=== PATIENT | female | born 1935 | race African-American/Black ===

== ENCOUNTER 2017-01-29 08:52 | Inpatient (IN) | payer MEDICARE, MEDICAID ==
[~2017-01-29] VITALS: Ht 168.9 cm; Wt 58.5 kg
[2017-01-29] MEDS ORDERED: SODIUM CHLORIDE 0.9% 1,000 ML IV ONE (09:24)
[2017-01-29] MEDS ORDERED: KETOROLAC 15MG/ML VIAL IV ONE (09:30)
[2017-01-29 09:46] LABS: BASOPHILS % 0.8 % (0.0-2.0); EOSINOPHILS % 1.2 % (0.0-5.0); HEMATOCRIT. 40.1 % (36.0-48.0); HEMOGLOBIN. 13.6 g/dL (12.0-16.0); LYMPHOCYTES % 21.6 % (20.0-50.0); MEAN CORPUSCULAR HEMOGLOBIN 31.1 pg (28.0-32.0); MEAN CORPUSCULAR HGB CONC 33.9 g/dL (31.0-37.0); MEAN CORPUSCULAR VOLUME 91.7 fL (81.0-99.0); MEAN PLATELET VOLUME 9.1 fl (7.4-10.4); MONOCYTES % 10.8 % (2.0-8.0); NEUTROPHILS % 65.6 % (40.0-76.0); PLATELET 131 x1000/uL (130-400); RED BLOOD CELL COUNT 4.37 mill/uL (4.2-5.4); RED CELL DISTRIBUTION WIDTH 14.3 % (11.6-14.6); WHITE BLOOD COUNT 3.8 x1000/uL (4.5-11.0)
[2017-01-29 09:54] LABS: PROTHROMBIN TIME 10.7 sec
[2017-01-29 10:03] LABS: ALANINE AMINOTRANSFERASE 21 IU/L (13-61); ALBUMIN 3.3 g/dL (3.4-5.0); ANION GAP 11; CALCIUM 8.3 mg/dL (8.5-10.1); CARBON DIOXIDE 30 mEq/L (21-32); CHLORIDE 102 mEq/L (98-107); INDEX HEMOLYSI 1 (1-3); INDEX ICTERIC 1 (1-4); INDEX LIPEMIC 1 (1-3); NT PRO B-TYPE NATRIURETIC PEP 1798 pg/mL (5-125); TROPONIN I 0.06 ng/mL (0.00-0.04); UREA NITROGEN BLOOD 18 mg/dL (7-21); eGFR > 60 mL/min (>60)
[2017-01-29] MEDS ORDERED: POTASSIUM CHLORIDE 20MEQ TABLET SR PO ONE (10:45)
[2017-01-29 13:24] LABS: CLARITY URINE CLEAR (CLEAR); COLOR URINE YELLOW (YELLOW); GLUCOSE URINE NEGATIVE (NEGATIVE); KETONES URINE NEGATIVE (NEGATIVE); LEUKOCYTE ESTERASE URINE NEGATIVE (NEGATIVE); NITRITE URINE NEGATIVE (NEGATIVE); OCCULT BLOOD URINE NEGATIVE (NEGATIVE); PROTEIN URINE TRACE (NEGATIVE); SPECIFIC GRAVITY URINE 1.015 (1.005-1.030); UROBILINOGEN URINE 0.2 E.U./dL (0.2-1.0)
[2017-01-29 13:53] LABS: WBC URINE 0-2 /hpf (0-2)
[2017-01-29 13:54] LABS: BACTERIA URINE NONE SEEN; MUCUS URINE 1+ /lpf (< = 2+); RBC URINE NONE SEEN /hpf (0-2); SQUAMOUS EPITHELIAL CELL URINE 1+ /lpf (RARE/1+)
[2017-01-29] MEDS ORDERED: ACETAMINOPHEN 325MG TABLET PO PRN (15:00)
[2017-01-29] MEDS ORDERED: ONDANSETRON HCL 4MG/2ML VIAL IV PRN (15:00)
[2017-01-29] MEDS ORDERED: MAGNESIUM/ALUMINUM HYDROXIDE/SIMETHICONE 30ML UDC PO PRN (15:00)
[2017-01-29] MEDS ORDERED: CLONIDINE 0.1MG TABLET PO PRN (15:00)
[2017-01-29] MEDS ORDERED: ENOXAPARIN 40MG/0.4ML SYR SUBCUT SCH (15:00)
[2017-01-29] MEDS ORDERED: HYDROCODONE/ACETAMINOPHEN 5/325MG TABLET PO PRN (15:00)
[2017-01-29] MEDS ORDERED: DOCUSATE SODIUM 100MG CAPSULE PO PRN (15:00)
[2017-01-29] MEDS: GUAIFENESIN 200MG/10ML SUGAR FREE UDC PO PRN (16:14)
[2017-01-29] MEDS ORDERED: LEVOFLOXACIN 500MG PREMIX 100 ML IV NR (16:14)
[2017-01-29] MEDS: ENOXAPARIN 40MG/0.4ML SYR SUBCUT SCH (21:00)
[2017-01-29 23:23] LABS: TROPONIN I 0.04 ng/mL (0.00-0.04)
[2017-01-30] VITALS (7 sets, daily range): BP systolic 117–142; BP diastolic 79–90
[2017-01-30] MEDS: GUAIFENESIN 200MG/10ML SUGAR FREE UDC PO PRN ×3 (00:34→21:32)
[2017-01-30] MEDS: ALPRAZOLAM 0.5 MG TABLET PO PRN ×2 (01:01→23:39)
[2017-01-30 05:40] LABS: ALANINE AMINOTRANSFERASE 17 IU/L (13-61); ALBUMIN 2.4 g/dL (3.4-5.0); CALCIUM 7.7 mg/dL (8.5-10.1); CARBON DIOXIDE 29 mEq/L (21-32); CHLORIDE 105 mEq/L (98-107); CREATINE KINASE 99 IU/L (26-192); HDL CHOLESTEROL 48 mg/dL (40-59); INDEX HEMOLYSI 1 (1-3); INDEX ICTERIC 1 (1-4); INDEX LIPEMIC 1 (1-3); LDL CHOLESTEROL 73 mg/dL (5-100); TRIGLYCERIDE 67 mg/dL (0-150); TROPONIN I 0.05 ng/mL (0.00-0.04); UREA NITROGEN BLOOD 12 mg/dL (7-21); eGFR > 60 mL/min (>60)
[2017-01-30 06:40] LABS: BASOPHILS % 0.7 % (0.0-2.0); EOSINOPHILS % 1.8 % (0.0-5.0); HEMATOCRIT. 36.4 % (36.0-48.0); HEMOGLOBIN. 12.6 g/dL (12.0-16.0); LYMPHOCYTES % 37.8 % (20.0-50.0); MEAN CORPUSCULAR HGB CONC 34.5 g/dL (31.0-37.0); MEAN CORPUSCULAR VOLUME 89.6 fL (81.0-99.0); MEAN PLATELET VOLUME 9.1 fl (7.4-10.4); MONOCYTES % 12.9 % (2.0-8.0); NEUTROPHILS % 46.8 % (40.0-76.0); PLATELET 128 x1000/uL (130-400); RED BLOOD CELL COUNT 4.06 mill/uL (4.2-5.4); RED CELL DISTRIBUTION WIDTH 13.8 % (11.6-14.6); WHITE BLOOD COUNT 2.7 x1000/uL (4.5-11.0)
[2017-01-30] MEDS: ASPIRIN 81MG EC TABLET PO SCH (08:19)
[2017-01-30 10:31] LABS: ANION GAP 11
[2017-01-30] MEDS ORDERED: POTASSIUM CHLORIDE 20MEQ TABLET SR PO NR (10:45)
[2017-01-30] MEDS ORDERED: LEVOFLOXACIN 500MG PREMIX 100 ML IV SCH (16:14)
[2017-01-30] MEDS: LEVOFLOXACIN 250MG PREMIX 50 ML IV SCH (17:49)
[2017-01-30] MEDS: ENOXAPARIN 40MG/0.4ML SYR SUBCUT SCH (21:00)
[2017-01-31] VITALS: BP 144/90
[2017-01-31 04:00] VITALS: BP 133/84
[2017-01-31 06:04] LABS: ALANINE AMINOTRANSFERASE 23 IU/L (13-61); ALBUMIN 2.6 g/dL (3.4-5.0); ANION GAP 12; CALCIUM 7.8 mg/dL (8.5-10.1); CARBON DIOXIDE 29 mEq/L (21-32); CHLORIDE 105 mEq/L (98-107); INDEX HEMOLYSI 1 (1-3); INDEX ICTERIC 1 (1-4); INDEX LIPEMIC 1 (1-3); MAGNESIUM 1.8 mg/dL (1.8-2.4); UREA NITROGEN BLOOD 14 mg/dL (7-21); eGFR > 60 mL/min (>60)
[2017-01-31 06:43] LABS: BASOPHILS % 0.8 % (0.0-2.0); EOSINOPHILS % 2.9 % (0.0-5.0); HEMOGLOBIN. 12.6 g/dL (12.0-16.0); LYMPHOCYTES % 40.7 % (20.0-50.0); MEAN CORPUSCULAR HEMOGLOBIN 30.9 pg (28.0-32.0); MEAN CORPUSCULAR HGB CONC 34.2 g/dL (31.0-37.0); MEAN CORPUSCULAR VOLUME 90.4 fL (81.0-99.0); MEAN PLATELET VOLUME 9.1 fl (7.4-10.4); MONOCYTES % 10.3 % (2.0-8.0); NEUTROPHILS % 45.3 % (40.0-76.0); PLATELET 137 x1000/uL (130-400); RED BLOOD CELL COUNT 4.09 mill/uL (4.2-5.4); RED CELL DISTRIBUTION WIDTH 13.9 % (11.6-14.6); WHITE BLOOD COUNT 3.3 x1000/uL (4.5-11.0)
[2017-01-31 07:58] VITALS: BP 121/76
[2017-01-31] MEDS: ASPIRIN 81MG EC TABLET PO SCH (08:13)
[2017-01-31] MEDS ORDERED: POTA10CA42 PO (08:21)
[2017-01-31] MEDS ORDERED: ALPR0.5T96 PO (08:21)
[2017-01-31] MEDS: GUAIFENESIN 200MG/10ML SUGAR FREE UDC PO PRN (10:47)
[2017-01-31 11:58] VITALS: BP 144/93
[2017-01-31] MEDS: POTASSIUM CHLORIDE 20MEQ TABLET SR PO SCH (13:57)
[2017-01-31 16:00] VITALS: BP 134/85
[2017-01-31] MEDS: LEVOFLOXACIN 250MG PREMIX 50 ML IV SCH (18:07)
[2017-01-31 20:00] VITALS: BP 136/78
[2017-01-31] MEDS: ENOXAPARIN 40MG/0.4ML SYR SUBCUT SCH (21:00)
[2017-02-01] VITALS: BP 135/87
[2017-02-01 04:00] VITALS: BP 140/87
[2017-02-01] MEDS: GUAIFENESIN 200MG/10ML SUGAR FREE UDC PO PRN ×2 (04:31→19:07)
[2017-02-01 08:08] VITALS: BP 143/88
[2017-02-01] MEDS: ASPIRIN 81MG EC TABLET PO SCH (09:00)
[2017-02-01] MEDS: POTASSIUM CHLORIDE 20MEQ TABLET SR PO SCH (09:17)
[2017-02-01] MEDS: LEVOFLOXACIN 250MG TABLET PO SCH (11:17)
[2017-02-01 12:32] VITALS: BP 135/84
[2017-02-01 16:00] VITALS: BP 144/87
[2017-02-01] MEDS ORDERED: REGADENOSON 0.4 MG/5 ML IV NR (18:45)
[2017-02-01] MEDS ORDERED: POTASSIUM CHLORIDE 20MEQ TABLET SR PO NR ×2 (18:45→22:45)
[2017-02-01 20:00] VITALS: BP 146/100
[2017-02-01] MEDS: ENOXAPARIN 40MG/0.4ML SYR SUBCUT SCH (21:00)
[2017-02-02] VITALS: BP 129/83
[2017-02-02 04:00] VITALS: BP 133/80
[2017-02-02 08:00] VITALS: BP 106/71
[2017-02-02] MEDS: POTASSIUM CHLORIDE 20MEQ TABLET SR PO SCH (08:51)
[2017-02-02] MEDS: ASPIRIN 81MG EC TABLET PO SCH (08:52)
[2017-02-02 09:50] LABS: ANION GAP 12; CALCIUM 7.9 mg/dL (8.5-10.1); CARBON DIOXIDE 26 mEq/L (21-32); CHLORIDE 109 mEq/L (98-107); INDEX HEMOLYSI 1 (1-3); INDEX ICTERIC 1 (1-4); INDEX LIPEMIC 1 (1-3); NT PRO B-TYPE NATRIURETIC PEP 2590 pg/mL (5-125); UREA NITROGEN BLOOD 15 mg/dL (7-21); eGFR > 60 mL/min (>60)
[2017-02-02] MEDS: LEVOFLOXACIN 250MG TABLET PO SCH (11:10)
[2017-02-02 12:00] VITALS: BP 129/83
== END 2017-02-02 16:40 | disposition home or self-care (01) | DRG 291 ==
LOC: ER 09:44 → 6WST 13:26
PROVIDERS: ADMIT Hospitalist; ATTEND Hospitalist
DX: I11.0 Hypertensive heart disease with heart failure (principal); J18.9 Pneumonia, unspecified organism; I50.21 Acute systolic (congestive) heart failure; I42.9 Cardiomyopathy, unspecified; E87.6 Hypokalemia; E78.5 Hyperlipidemia, unspecified; E78.00 Pure hypercholesterolemia, unspecified; I25.10 Atherosclerotic heart disease of native coronary artery without angina pectoris; Z95.0 Presence of cardiac pacemaker; Z86.74 Personal history of sudden cardiac arrest; Z87.891 Personal history of nicotine dependence; Z95.810 Presence of automatic (implantable) cardiac defibrillator; Z88.8 Allergy status to other drugs, medicaments and biological substances
CPT/HCPCS: 36415; 71010; 80048; 80053; 80061; 81001; 82550; 83735; 83880; 84484; 85025; 85610; 87040; 87086; 87804; 93005; 96361; 96374; 97162; 99285; J1650; J1885; J1956; J7030; J7050

== ENCOUNTER 2017-07-24 12:57 | Inpatient (IN) | payer MEDICARE, MEDICAID ==
[~2017-07-24] VITALS: Ht 167.6 cm; Wt 51.7 kg
[~2017-07-24 12:57] MED LIST: ALPR0.5T PO; LEVO500T2 PO; POTA10CA42 PO; VALS80TA2 PO
[2017-07-24] MEDS ORDERED: SODIUM CHLORIDE 0.9% 1,000 ML IV ONE ×2 (14:49→16:15)
[2017-07-24 15:40] LABS: BASOPHILS % 0.9 % (0.0-2.0); EOSINOPHILS % 5.9 % (0.0-5.0); HEMATOCRIT. 34.4 % (36.0-48.0); HEMOGLOBIN. 11.4 g/dL (12.0-16.0); LYMPHOCYTES % 19.7 % (20.0-50.0); MEAN CORPUSCULAR HEMOGLOBIN 31.6 pg (28.0-32.0); MEAN PLATELET VOLUME 9.6 fl (7.4-10.4); MONOCYTES % 8.1 % (2.0-8.0); NEUTROPHILS % 65.4 % (40.0-76.0); PLATELET 208 x1000/uL (130-400); RED BLOOD CELL COUNT 3.62 mill/uL (4.2-5.4); RED CELL DISTRIBUTION WIDTH 16.8 % (11.6-14.6)
[2017-07-24 15:44] LABS: INR 1.1; PROTHROMBIN TIME 11.6 sec (9.4-11.6)
[2017-07-24 15:51] LABS: CARBON DIOXIDE 27 mEq/L (21-32); CHLORIDE 114 mEq/L (98-107); TROPONIN I 0.19 ng/mL (0.00-0.04)
[2017-07-24] MEDS ORDERED: ADENOSINE 3 MG/ML 2ML VIAL IV ONE ×4 (16:39→17:00)
[2017-07-24] MEDS ORDERED: DILTIAZEM HCL 125 MG in DEXT 5% WATER 100 ML IV ONE (17:00)
[2017-07-24] MEDS ORDERED: DILTIAZEM HCL 5MG/ML 5ML VIAL IV PRN (17:00)
[2017-07-24 17:09] LABS: CLARITY URINE CLEAR (CLEAR); COLOR URINE DARK YELLOW (YELLOW); GLUCOSE URINE NEGATIVE (NEGATIVE); KETONES URINE TRACE (NEGATIVE); LEUKOCYTE ESTERASE URINE NEGATIVE (NEGATIVE); NITRITE URINE NEGATIVE (NEGATIVE); OCCULT BLOOD URINE NEGATIVE (NEGATIVE); PH URINE 5.5 (4.5-8.0); PROTEIN URINE 3+ (NEGATIVE); SPECIFIC GRAVITY URINE 1.031 (1.005-1.030)
[2017-07-24 17:27] LABS: *AMPHETAMINES SCREEN URINE NEGATIVE (NEGATIVE); *BARBITURATES SCREEN URINE NEGATIVE (NEGATIVE); *BENZODIAZEPINES SCREEN URINE NEGATIVE (NEGATIVE); *COCAINE SCREEN URINE NEGATIVE (NEGATIVE); CANNABINOID URINE SCREEN NEGATIVE (NEGATIVE); METHADONE URINE SCREEN NEGATIVE (NEGATIVE); OPIATES URINE SCREEN NEGATIVE (NEGATIVE); PHENCYCLIDINE URINE SCREEN NEGATIVE (NEGATIVE)
[2017-07-24 20:54] LABS: HEMATOCRIT 31.8 % (36.0-48.0); HEMOGLOBIN 10.6 g/dL (12.0-16.0); MEAN CORPUSCULAR VOLUME 95.8 fL (81.0-99.0); PLATELET 178 x1000/uL (130-400); RED BLOOD CELL COUNT 3.32 mill/uL (4.2-5.4); RED CELL DISTRIBUTION WIDTH 16.7 % (11.6-14.6)
[2017-07-24 21:09] LABS: CARBON DIOXIDE 23 mEq/L (21-32); CHLORIDE 117 mEq/L (98-107); TROPONIN I 0.25 ng/mL (0.00-0.04)
[2017-07-24] MEDS ORDERED: SODIUM CHL 0.45% + KCL 20MEQ/L 1,000 ML IV SCH (21:30)
[2017-07-24 23:24] VITALS: BP 137/93
[2017-07-24 23:39] VITALS: BP 120/85
[2017-07-24 23:54] VITALS: BP 126/85
[2017-07-25] VITALS (62 sets, daily range): BP systolic 80–143; BP diastolic 46–105
[2017-07-25 00:47] LABS: BG BASE EXCESS -2.3 mmol/L (-2.0-2.0); BG CARBOXYHEMOGLOBIN 0.3 % (0.5-1.5); BG DEOXYHEMOGLOBIN 4.7 % (0.0-5.0); BG FRACTION INSPIRED OXYGEN 44; BG HCO3 ACT 20.9 mmol/L (22.0-26.0); BG METHEMOGLOBIN 0.2 % (0.0-1.5); BG OXYGEN SATURATION 95.3 % (92.0-98.5); BG OXYHEMOGLOBIN 94.8 % (94.0-97.0); BG PCO2 30.8 mmHg (35.0-45.0); BG PH 7.449 (7.350-7.450); BG PO2 80.2 mmHg (75.0-100.0); BG SAMPLE SITE LEFT BRACHIAL; BG TOTAL HEMOGLOBIN 11.7 g/dL (12.0-18.0); BG VENT MODE MASK - SIMPLE
[2017-07-25] MEDS ORDERED: DILTIAZEM HCL 125 MG in DEXT 5% WATER 100 ML IV PRN (01:15)
[2017-07-25] MEDS: FUROSEMIDE 40MG/4ML VIAL IVP SCH ×2 (01:27→08:50)
[2017-07-25] MEDS: ALBUTEROL (0.083%) 2.5MG/3ML NEB HHN SCH ×4 (01:35→21:06)
[2017-07-25] MEDS ORDERED: ALBUTEROL (0.083%) 2.5MG/3ML NEB ONE (01:36)
[2017-07-25] MEDS ORDERED: POTASSIUM CHLORIDE INJ 40 MEQ in DEXT 5% WATER 500 ML IV SCH (03:00)
[2017-07-25 05:25] LABS: HEMATOCRIT 32.5 % (36.0-48.0); HEMOGLOBIN 10.8 g/dL (12.0-16.0); MEAN CORPUSCULAR HEMOGLOBIN 31.7 pg (28.0-32.0); MEAN CORPUSCULAR VOLUME 95.3 fL (81.0-99.0); PLATELET 182 x1000/uL (130-400); RED BLOOD CELL COUNT 3.41 mill/uL (4.2-5.4); RED CELL DISTRIBUTION WIDTH 16.8 % (11.6-14.6)
[2017-07-25 05:51] LABS: CARBON DIOXIDE 28 mEq/L (21-32); CHLORIDE 112 mEq/L (98-107)
[2017-07-25 07:57] LABS: BG BASE EXCESS 3.6 mmol/L (-2.0-2.0); BG CARBOXYHEMOGLOBIN 0.2 % (0.5-1.5); BG DEOXYHEMOGLOBIN 4.5 % (0.0-5.0); BG FRACTION INSPIRED OXYGEN 32; BG HCO3 ACT 27.8 mmol/L (22.0-26.0); BG METHEMOGLOBIN 0.6 % (0.0-1.5); BG OXYGEN SATURATION 95.5 % (92.0-98.5); BG OXYHEMOGLOBIN 94.7 % (94.0-97.0); BG PCO2 40.4 mmHg (35.0-45.0); BG PH 7.455 (7.350-7.450); BG PO2 81.5 mmHg (75.0-100.0); BG SAMPLE SITE RIGHT BRACHIAL; BG TOTAL HEMOGLOBIN 10.9 g/dL (12.0-18.0); BG VENT MODE NASAL CANNULA
[2017-07-25] MEDS: FAMOTIDINE 20MG/2ML VIAL IV SCH (08:50)
[2017-07-25] MEDS ORDERED: PANTOPRAZOLE SODIUM 40 MG/VIAL IV SCH (09:00)
[2017-07-25] MEDS: ENOXAPARIN 40MG/0.4ML SYR SUBCUT SCH ×2 (09:00→11:03)
[2017-07-25] MEDS ORDERED: ONDANSETRON HCL 4MG/2ML VIAL IV PRN (09:15)
[2017-07-25] MEDS ORDERED: ONDANSETRON HCL 4MG/2ML VIAL IV NR (09:15)
[2017-07-25] MEDS ORDERED: POTASSIUM CHLORIDE 20MEQ TABLET SR PO SCH (10:00)
[2017-07-25] MEDS ORDERED: MAGNESIUM 2 G PREMIX 50 ML IV SCH (10:00)
[2017-07-25] MEDS: CARVEDILOL 3.125 MG TABLET PO SCH ×2 (11:03→20:00)
[2017-07-25 11:06] LABS: T4 FREE 1.26 ng/dL (0.76-1.46)
[2017-07-25] MEDS ORDERED: SODIUM CHLORIDE 0.45% 1,000 ML IV SCH (13:30)
[2017-07-25 15:31] LABS: CREATINE KINASE MB FRACTION 1.4 ng/mL (0.5-3.6); TROPONIN I 0.26 ng/mL (0.00-0.04)
[2017-07-25] MEDS ORDERED: HYDROCODONE/ACETAMINOPHEN 5/325MG TABLET PO PRN (19:30)
[2017-07-25] MEDS: ACETAMINOPHEN 650MG/20.3ML UDC PO PRN (19:47)
[2017-07-25 23:31] LABS: CREATINE KINASE MB FRACTION 0.6 ng/mL (0.5-3.6)
[2017-07-26] MEDS: ALBUTEROL (0.083%) 2.5MG/3ML NEB HHN SCH ×6 (00:15→20:19)
[2017-07-26 00:36] VITALS: BP 100/66
[2017-07-26 04:00] VITALS: BP 109/77
[2017-07-26 07:39] LABS: CREATINE KINASE MB FRACTION 0.8 ng/mL (0.5-3.6)
[2017-07-26 08:05] VITALS: BP 96/62
[2017-07-26] MEDS: FUROSEMIDE 40MG/4ML VIAL IVP SCH (08:51)
[2017-07-26] MEDS: FAMOTIDINE 20MG/2ML VIAL IV SCH (08:51)
[2017-07-26] MEDS: ACETAMINOPHEN 650MG/20.3ML UDC PO PRN ×2 (08:52→19:03)
[2017-07-26] MEDS: CARVEDILOL 3.125 MG TABLET PO SCH (11:06)
[2017-07-26 12:00] VITALS: BP 109/67
[2017-07-26] MEDS: LOSARTAN POTASSIUM 25 MG TABLET PO SCH (12:48)
[2017-07-26 16:32] VITALS: BP 102/57
[2017-07-26 19:49] LABS: BASOPHILS % 0.8 % (0.0-2.0); EOSINOPHILS % 5.4 % (0.0-5.0); HEMATOCRIT. 33.4 % (36.0-48.0); HEMOGLOBIN. 11.3 g/dL (12.0-16.0); LYMPHOCYTES % 18.8 % (20.0-50.0); MEAN CORPUSCULAR HEMOGLOBIN 32.3 pg (28.0-32.0); MEAN CORPUSCULAR VOLUME 95.6 fL (81.0-99.0); MEAN PLATELET VOLUME 9.3 fl (7.4-10.4); MONOCYTES % 7.9 % (2.0-8.0); NEUTROPHILS % 67.1 % (40.0-76.0); PLATELET 181 x1000/uL (130-400); RED BLOOD CELL COUNT 3.49 mill/uL (4.2-5.4); RED CELL DISTRIBUTION WIDTH 16.5 % (11.6-14.6)
[2017-07-26 20:00] VITALS: BP 105/71
[2017-07-26 20:16] LABS: CHLORIDE 110 mEq/L (98-107)
[2017-07-26 20:24] LABS: CARBON DIOXIDE 29 mEq/L (21-32)
[2017-07-26] MEDS: CARVEDILOL 6.25 MG TABLET PO SCH (21:00)
[2017-07-27] VITALS: BP 117/73
[2017-07-27] MEDS: ALBUTEROL (0.083%) 2.5MG/3ML NEB HHN SCH ×4 (00:40→15:03)
[2017-07-27 04:00] VITALS: BP 110/73
[2017-07-27 07:52] VITALS: BP 111/69
[2017-07-27] MEDS ORDERED: LOSA25TA3 PO (08:15)
[2017-07-27] MEDS ORDERED: FURO-151 PO (08:15)
[2017-07-27] MEDS ORDERED: COR6 PO (08:15)
[2017-07-27] MEDS: LOSARTAN POTASSIUM 25 MG TABLET PO SCH (09:55)
[2017-07-27] MEDS: FAMOTIDINE 20MG/2ML VIAL IV SCH (09:56)
[2017-07-27] MEDS: FUROSEMIDE 40MG/4ML VIAL IVP SCH (09:56)
[2017-07-27] MEDS: CARVEDILOL 6.25 MG TABLET PO SCH (09:57)
[2017-07-27 11:45] VITALS: BP 111/69
[2017-07-28 08:21] LABS: CANCER ANTIGEN 125 21.3 U/mL (0.0-38.1)
== END 2017-07-27 12:29 | disposition home or self-care (01) | DRG 70 ==
LOC: ER 15:32 → MICUSO 17:51 → ENRESERV 22:21 → 6WST 07-25 21:35
PROVIDERS: ADMIT Family Medicine; ATTEND Family Medicine
DX: G93.40 Encephalopathy, unspecified (principal); I50.23 Acute on chronic systolic (congestive) heart failure; E87.0 Hyperosmolality and hypernatremia; E44.0 Moderate protein-calorie malnutrition; I24.9 Acute ischemic heart disease, unspecified; I42.9 Cardiomyopathy, unspecified; E83.42 Hypomagnesemia; I27.2 Other secondary pulmonary hypertension; I48.91 Unspecified atrial fibrillation; I47.1 Supraventricular tachycardia; Z68.1 Body mass index [BMI] 19.9 or less, adult; I11.0 Hypertensive heart disease with heart failure; E86.0 Dehydration; E11.9 Type 2 diabetes mellitus without complications; D64.9 Anemia, unspecified; T65.91XA Toxic effect of unspecified substance, accidental (unintentional), initial encounter; E87.6 Hypokalemia; I25.10 Atherosclerotic heart disease of native coronary artery without angina pectoris; E78.00 Pure hypercholesterolemia, unspecified; E78.5 Hyperlipidemia, unspecified; F41.9 Anxiety disorder, unspecified; I34.0 Nonrheumatic mitral (valve) insufficiency; Z95.810 Presence of automatic (implantable) cardiac defibrillator; Z88.5 Allergy status to narcotic agent; Z79.2 Long term (current) use of antibiotics; Z79.899 Other long term (current) drug therapy; Y92.89 Other specified places as the place of occurrence of the external cause
CPT/HCPCS: 36415; 36600; 70450; 71010; 78580; 80048; 80053; 80061; 80305; 81001; 82375; 82378; 82550; 82553; 82805; 82962; 83036; 83735; 83880; 84132; 84439; 84443; 84484; 85025; 85027; 85379; 85610; 86301; 86304; 86850; 86900; 93005; 93306; 93970; 94640; 94664; 96361; 96374; 96375; 97162; 97530; 99291; J0153; J1650; J1940; J2405; J3475; J3480; J3490; J7030; J7060; J7611; A4315

== ENCOUNTER 2017-08-04 19:29 | Inpatient (IN) | payer MEDICARE, MEDICAID ==
[~2017-08-04] VITALS: Ht 167.6 cm; Wt 49.0 kg
[~2017-08-04 19:29] MED LIST changes: +COR6 PO; +FURO-151 PO; -LEVO500T2 PO; +LOSA25TA3 PO
[2017-08-04 23:07] LABS: HEMATOCRIT. 39.5 % (36.0-48.0); HEMOGLOBIN. 13.1 g/dL (12.0-16.0); MEAN CORPUSCULAR VOLUME 96.3 fL (81.0-99.0); MEAN PLATELET VOLUME 10.2 fl (7.4-10.4); PLATELET 163 x1000/uL (130-400)
[2017-08-04 23:23] LABS: CARBON DIOXIDE 26 mEq/L (21-32); CHLORIDE 117 mEq/L (98-107); CREATINE KINASE 55 IU/L (26-192); TROPONIN I 0.22 ng/mL (0.00-0.04)
[2017-08-04 23:24] LABS: CREATINE KINASE MB FRACTION 1.6 ng/mL (0.5-3.6)
[2017-08-04 23:27] LABS: ATYPICAL LYMPHOCYTES 1; PLATELET ESTIMATE NORMAL
[2017-08-05 01:07] LABS: INR 1.2; PARTIAL THROMBOPLASTIN TIME 21.6 sec (23.4-31.0)
[2017-08-05] MEDS ORDERED: SODIUM CHLORIDE 0.9% 1,000 ML IV ONE (01:45)
[2017-08-05] MEDS ORDERED: SODIUM CHLORIDE 0.9% 1,000 ML IV SCH (02:34)
[2017-08-05 05:00] VITALS: BP 124/85
[2017-08-05 05:04] VITALS: BP 124/85
[2017-08-05] MEDS ORDERED: METO-396 PO (05:31)
[2017-08-05] MEDS ORDERED: ASPI-1159 PO (05:31)
[2017-08-05] MEDS ORDERED: LORA2TAB2 PO (05:31)
[2017-08-05] MEDS ORDERED: FURO40TA5 PO (05:32)
[2017-08-05] MEDS ORDERED: ACETAMINOPHEN 325MG TABLET PO PRN (06:45)
[2017-08-05 08:00] VITALS: BP 112/79
[2017-08-05] MEDS: FUROSEMIDE 40MG/4ML VIAL IVP SCH (08:54)
[2017-08-05] MEDS: ASPIRIN 81MG EC TABLET PO SCH (08:58)
[2017-08-05] MEDS: LOSARTAN POTASSIUM 25 MG TABLET PO SCH (08:58)
[2017-08-05] MEDS: CARVEDILOL 6.25 MG TABLET PO SCH ×2 (09:00→21:00)
[2017-08-05] MEDS: ENOXAPARIN 40MG/0.4ML SYR SUBCUT SCH (09:00)
[2017-08-05] MEDS ORDERED: MEDICATION NOT ON FORMULARY EA (Potassium Chloride 10 MEQ) PO SCH (09:00)
[2017-08-05] MEDS: POTASSIUM CHLORIDE 10MEQ TABLET SR PO SCH (09:01)
[2017-08-05] MEDS: IPRATROPIUM/ALBUTEROL 0.5-3(2.5)MG/3ML NEB HHN SCH ×4 (09:07→21:14)
[2017-08-05 09:40] LABS: CREATINE KINASE MB FRACTION 1.9 ng/mL (0.5-3.6); TROPONIN I 0.3 ng/mL (0.00-0.04)
[2017-08-05 12:00] VITALS: BP 117/70
[2017-08-05 16:00] VITALS: BP 120/68
[2017-08-05 20:00] VITALS: BP 101/66
[2017-08-06] VITALS: BP 115/74
[2017-08-06] MEDS: ONDANSETRON HCL 4MG/2ML VIAL IV PRN (00:31)
[2017-08-06] MEDS: IPRATROPIUM/ALBUTEROL 0.5-3(2.5)MG/3ML NEB HHN SCH ×6 (01:03→20:58)
[2017-08-06 04:00] VITALS: BP 103/66
[2017-08-06 06:24] LABS: CARBON DIOXIDE 31 mEq/L (21-32); CHLORIDE 116 mEq/L (98-107)
[2017-08-06 08:00] VITALS: BP 102/61
[2017-08-06] MEDS: ASPIRIN 81MG EC TABLET PO SCH (08:54)
[2017-08-06] MEDS: POTASSIUM CHLORIDE 10MEQ TABLET SR PO SCH (08:54)
[2017-08-06] MEDS: CARVEDILOL 6.25 MG TABLET PO SCH ×2 (08:54→21:00)
[2017-08-06] MEDS: LOSARTAN POTASSIUM 25 MG TABLET PO SCH (08:55)
[2017-08-06] MEDS: ENOXAPARIN 40MG/0.4ML SYR SUBCUT SCH (09:00)
[2017-08-06] MEDS: FUROSEMIDE 40MG/4ML VIAL IVP SCH (10:07)
[2017-08-06 12:00] VITALS: BP 92/59
[2017-08-06] MEDS ORDERED: DEXT 5% WATER 500 ML IV ONE (13:27)
[2017-08-06] MEDS ORDERED: POTASSIUM CHLORIDE 20MEQ TABLET SR PO NR ×2 (13:30→18:30)
[2017-08-06] MEDS ORDERED: MAGNESIUM 2 G PREMIX 50 ML IV NR (14:30)
[2017-08-06 16:00] VITALS: BP 83/48
[2017-08-06 20:00] VITALS: BP 98/60
[2017-08-06] MEDS: LORAZEPAM 1MG TABLET PO PRN (23:29)
[2017-08-07] VITALS: BP 95/43
[2017-08-07] MEDS: IPRATROPIUM/ALBUTEROL 0.5-3(2.5)MG/3ML NEB HHN SCH ×6 (01:09→20:48)
[2017-08-07 04:00] VITALS: BP 91/55
[2017-08-07] MEDS: ONDANSETRON HCL 4MG/2ML VIAL IV PRN (06:17)
[2017-08-07 08:00] VITALS: BP 91/60
[2017-08-07] MEDS: POTASSIUM CHLORIDE 10MEQ TABLET SR PO SCH (08:46)
[2017-08-07] MEDS: ASPIRIN 81MG EC TABLET PO SCH ×2 (08:46→08:55)
[2017-08-07] MEDS: ENOXAPARIN 40MG/0.4ML SYR SUBCUT SCH ×2 (08:47→08:55)
[2017-08-07] MEDS: CARVEDILOL 6.25 MG TABLET PO SCH ×2 (08:55→21:00)
[2017-08-07] MEDS: LOSARTAN POTASSIUM 25 MG TABLET PO SCH (08:56)
[2017-08-07 09:36] LABS: CARBON DIOXIDE 30 mEq/L (21-32); CHLORIDE 111 mEq/L (98-107)
[2017-08-07 12:00] VITALS: BP 93/63
[2017-08-07 16:00] VITALS: BP 121/73
[2017-08-07] MEDS ORDERED: FUROSEMIDE 40MG/4ML VIAL IVP NR (18:30)
[2017-08-07] MEDS: FUROSEMIDE 40MG/4ML VIAL IVP NR (19:00)
[2017-08-07] MEDS: POTASSIUM CHLORIDE 20MEQ TABLET SR PO NR (19:00)
[2017-08-07 19:59] LABS: CARBON DIOXIDE 31 mEq/L (21-32); CHLORIDE 112 mEq/L (98-107)
[2017-08-07 20:00] VITALS: BP 105/64
[2017-08-08] VITALS: BP 104/70
[2017-08-08] MEDS: IPRATROPIUM/ALBUTEROL 0.5-3(2.5)MG/3ML NEB HHN SCH ×5 (00:40→20:06)
[2017-08-08] MEDS: LORAZEPAM 1MG TABLET PO PRN ×3 (03:49→22:16)
[2017-08-08 04:00] VITALS: BP 99/67
[2017-08-08] MEDS ORDERED: POTASSIUM CHLORIDE 20MEQ TABLET SR PO SCH (07:00)
[2017-08-08] MEDS ORDERED: FUROSEMIDE 40MG/4ML VIAL IVP SCH (07:00)
[2017-08-08 08:00] VITALS: BP 112/78
[2017-08-08] MEDS: ASPIRIN 81MG EC TABLET PO SCH (09:00)
[2017-08-08] MEDS: ENOXAPARIN 40MG/0.4ML SYR SUBCUT SCH (09:00)
[2017-08-08] MEDS: CARVEDILOL 6.25 MG TABLET PO SCH ×2 (09:35→22:16)
[2017-08-08] MEDS: POTASSIUM CHLORIDE 10MEQ TABLET SR PO SCH (09:35)
[2017-08-08] MEDS: LOSARTAN POTASSIUM 25 MG TABLET PO SCH (09:35)
[2017-08-08 12:00] VITALS: BP 127/84
[2017-08-08 16:00] VITALS: BP 132/81
[2017-08-08 20:00] VITALS: BP 120/86
[2017-08-09] VITALS: BP 111/80
[2017-08-09] MEDS: IPRATROPIUM/ALBUTEROL 0.5-3(2.5)MG/3ML NEB HHN SCH ×6 (00:30→21:14)
[2017-08-09 04:00] VITALS: BP 140/82
[2017-08-09] MEDS: LORAZEPAM 1MG TABLET PO PRN (06:50)
[2017-08-09 08:00] VITALS: BP 136/82
[2017-08-09] MEDS: CARVEDILOL 6.25 MG TABLET PO SCH (08:57)
[2017-08-09] MEDS: LOSARTAN POTASSIUM 25 MG TABLET PO SCH (08:57)
[2017-08-09] MEDS: ASPIRIN 81MG EC TABLET PO SCH (08:58)
[2017-08-09] MEDS: ENOXAPARIN 40MG/0.4ML SYR SUBCUT SCH (08:59)
[2017-08-09] MEDS: CYPROHEPTADINE HCL 4 MG TABLET PO SCH (08:59)
[2017-08-09] MEDS: POTASSIUM CHLORIDE 10MEQ TABLET SR PO SCH (09:00)
[2017-08-09 12:00] VITALS: BP 107/77
[2017-08-09 16:00] VITALS: BP 106/76
[2017-08-09 20:00] VITALS: BP 125/77
[2017-08-09] MEDS: CARVEDILOL 12.5MG TABLET PO SCH (20:47)
[2017-08-10] VITALS: BP 86/52
[2017-08-10] MEDS: IPRATROPIUM/ALBUTEROL 0.5-3(2.5)MG/3ML NEB HHN SCH ×6 (00:52→21:09)
[2017-08-10 04:00] VITALS: BP 106/69
[2017-08-10 08:14] VITALS: BP 100/70
[2017-08-10 08:21] LABS: CHLORIDE 113 mEq/L (98-107)
[2017-08-10 08:27] LABS: CARBON DIOXIDE 25 mEq/L (21-32); PHOSPHORUS 3.2 mg/dL (2.5-4.9)
[2017-08-10] MEDS: ASPIRIN 81MG EC TABLET PO SCH (09:00)
[2017-08-10] MEDS: CARVEDILOL 12.5MG TABLET PO SCH ×2 (09:00→21:00)
[2017-08-10] MEDS: ENOXAPARIN 40MG/0.4ML SYR SUBCUT SCH (09:00)
[2017-08-10 09:01] LABS: BASOPHILS % 0.8 % (0.0-2.0); HEMATOCRIT. 45.1 % (36.0-48.0); HEMOGLOBIN. 14.6 g/dL (12.0-16.0); LYMPHOCYTES % 19.6 % (20.0-50.0); MEAN CORPUSCULAR HEMOGLOBIN 31.7 pg (28.0-32.0); MEAN CORPUSCULAR VOLUME 97.8 fL (81.0-99.0); MEAN PLATELET VOLUME 10.3 fl (7.4-10.4); MONOCYTES % 6.4 % (2.0-8.0); NEUTROPHILS % 70.2 % (40.0-76.0); PLATELET 140 x1000/uL (130-400); RED BLOOD CELL COUNT 4.61 mill/uL (4.2-5.4); RED CELL DISTRIBUTION WIDTH 15.7 % (11.6-14.6)
[2017-08-10] MEDS ORDERED: FUROSEMIDE 40MG/4ML VIAL IVP NR (10:00)
[2017-08-10] MEDS: POTASSIUM CHLORIDE 10MEQ TABLET SR PO SCH (10:32)
[2017-08-10] MEDS: CYPROHEPTADINE HCL 4 MG TABLET PO SCH (10:32)
[2017-08-10 12:00] VITALS: BP 113/67
[2017-08-10] MEDS: LOSARTAN POTASSIUM 25 MG TABLET PO SCH (14:16)
[2017-08-10] MEDS: LORAZEPAM 0.5MG TABLET PO PRN (15:48)
[2017-08-10 16:00] VITALS: BP 110/67
[2017-08-10 20:00] VITALS: BP 101/64
[2017-08-11 00:05] VITALS: BP 94/56
[2017-08-11 04:00] VITALS: BP 101/62
[2017-08-11] MEDS: IPRATROPIUM/ALBUTEROL 0.5-3(2.5)MG/3ML NEB HHN SCH ×5 (04:45→15:58)
[2017-08-11 08:00] VITALS: BP 111/65
[2017-08-11 08:23] LABS: CARBON DIOXIDE 26 mEq/L (21-32); CHLORIDE 111 mEq/L (98-107)
[2017-08-11] MEDS: ASPIRIN 81MG EC TABLET PO SCH (09:47)
[2017-08-11] MEDS: POTASSIUM CHLORIDE 10MEQ TABLET SR PO SCH (09:47)
[2017-08-11] MEDS: LOSARTAN POTASSIUM 25 MG TABLET PO SCH (09:47)
[2017-08-11] MEDS: CARVEDILOL 12.5MG TABLET PO SCH (09:47)
[2017-08-11] MEDS: ENOXAPARIN 40MG/0.4ML SYR SUBCUT SCH (09:48)
[2017-08-11] MEDS: CYPROHEPTADINE HCL 4 MG TABLET PO SCH (09:48)
[2017-08-11] MEDS ORDERED: PAROXETINE HCL 20MG TABLET PO SCH (10:00)
[2017-08-11 12:00] VITALS: BP 91/54
[2017-08-11 12:11] LABS: BG BASE EXCESS 5.6 mmol/L (-2.0-2.0); BG CARBOXYHEMOGLOBIN 0.4 % (0.5-1.5); BG DEOXYHEMOGLOBIN 5.2 % (0.0-5.0); BG FRACTION INSPIRED OXYGEN 21; BG HCO3 ACT 29.3 mmol/L (22.0-26.0); BG METHEMOGLOBIN 0.2 % (0.0-1.5); BG OXYGEN SATURATION 94.8 % (92.0-98.5); BG OXYHEMOGLOBIN 94.2 % (94.0-97.0); BG PCO2 39.2 mmHg (35.0-45.0); BG PH 7.491 (7.350-7.450); BG PO2 73.6 mmHg (75.0-100.0); BG SAMPLE SITE LEFT BRACHIAL; BG TOTAL HEMOGLOBIN 13.9 g/dL (12.0-18.0); BG VENT MODE ROOM AIR
[2017-08-11] MEDS: LORAZEPAM 0.5MG TABLET PO PRN (14:38)
[2017-08-11 14:52] VITALS: BP 91/54
[2017-08-11 16:00] VITALS: BP 108/68
== END 2017-08-11 19:05 | DRG 291 ==
LOC: ER 19:29 → 7WST 08-05 02:43 → EDBEDREQ 08-05 02:45 → EDBEDREQTM 08-05 02:45 → ENRESERV 08-05 03:13
PROVIDERS: ADMIT Internal Medicine; ATTEND Internal Medicine
DX: I11.0 Hypertensive heart disease with heart failure (principal); E43 Unspecified severe protein-calorie malnutrition; J18.9 Pneumonia, unspecified organism; E87.0 Hyperosmolality and hypernatremia; I27.2 Other secondary pulmonary hypertension; E83.42 Hypomagnesemia; I42.9 Cardiomyopathy, unspecified; Z68.1 Body mass index [BMI] 19.9 or less, adult; I50.23 Acute on chronic systolic (congestive) heart failure; I08.1 Rheumatic disorders of both mitral and tricuspid valves; E78.5 Hyperlipidemia, unspecified; E87.6 Hypokalemia; I25.10 Atherosclerotic heart disease of native coronary artery without angina pectoris; E78.00 Pure hypercholesterolemia, unspecified; F32.9 Major depressive disorder, single episode, unspecified; Z60.2 Problems related to living alone; R26.9 Unspecified abnormalities of gait and mobility; F41.9 Anxiety disorder, unspecified; R13.10 Dysphagia, unspecified; Z95.810 Presence of automatic (implantable) cardiac defibrillator; Z88.5 Allergy status to narcotic agent; Z79.899 Other long term (current) drug therapy
CPT/HCPCS: 36415; 36600; 71010; 80048; 80053; 80061; 82375; 82550; 82553; 82805; 83690; 83735; 83880; 84100; 84484; 85025; 85610; 85730; 92610; 93005; 94640; 94664; 96360; 97163; 99285; J1650; J1940; J2405; J3475; J7030; J7060; J7620

== ENCOUNTER 2017-08-11 19:10 | Inpatient (IN) | payer MEDICARE, MEDICAID ==
[~2017-08-11] VITALS: Ht 167.6 cm; Wt 51.7 kg
[~2017-08-11 19:10] MED LIST changes: +ASPI-1159 PO; -FURO-151 PO; +FURO40TA5 PO; +LORA2TAB2 PO; +METO-396 PO
[2017-08-11 20:00] VITALS: BP 93/70
[2017-08-11 20:20] VITALS: BP 93/70
[2017-08-11] MEDS ORDERED: LORAZEPAM 0.5MG TABLET PO PRN (21:15)
[2017-08-11] MEDS ORDERED: ACETAMINOPHEN 325MG TABLET PO PRN (21:15)
[2017-08-12 06:58] LABS: BASOPHILS % 0.9 % (0.0-2.0); EOSINOPHILS % 3.8 % (0.0-5.0); HEMOGLOBIN. 14.4 g/dL (12.0-16.0); LYMPHOCYTES % 20.4 % (20.0-50.0); MEAN CORPUSCULAR HEMOGLOBIN 31.8 pg (28.0-32.0); MEAN PLATELET VOLUME 10.2 fl (7.4-10.4); NEUTROPHILS % 67.9 % (40.0-76.0); PLATELET 164 x1000/uL (130-400); RED BLOOD CELL COUNT 4.53 mill/uL (4.2-5.4); RED CELL DISTRIBUTION WIDTH 15.4 % (11.6-14.6)
[2017-08-12 07:21] LABS: CARBON DIOXIDE 29 mEq/L (21-32); CHLORIDE 109 mEq/L (98-107)
[2017-08-12 08:00] VITALS: BP 137/82
[2017-08-12] MEDS: ENOXAPARIN 40MG/0.4ML SYR SUBCUT SCH (08:45)
[2017-08-12] MEDS: DOCUSATE SODIUM 100MG CAPSULE PO SCH ×2 (08:45→17:00)
[2017-08-12] MEDS: LACTULOSE 20G/30ML UDC PO SCH ×3 (08:45→17:00)
[2017-08-12] MEDS: POTASSIUM CHLORIDE 10MEQ TABLET SR PO SCH (08:46)
[2017-08-12] MEDS: PAROXETINE HCL 20MG TABLET PO SCH (08:46)
[2017-08-12] MEDS: CARVEDILOL 12.5MG TABLET PO SCH ×2 (08:46→21:00)
[2017-08-12] MEDS: LOSARTAN POTASSIUM 25 MG TABLET PO SCH (08:46)
[2017-08-12] MEDS: ASPIRIN 81MG EC TABLET PO SCH (08:47)
[2017-08-12] MEDS: CYPROHEPTADINE HCL 4 MG TABLET PO SCH (08:47)
[2017-08-12] MEDS: IPRATROPIUM/ALBUTEROL 0.5-3(2.5)MG/3ML NEB HHN SCH ×3 (08:58→20:49)
[2017-08-12 20:00] VITALS: BP 86/54
[2017-08-12] MEDS: POLYETHYLENE GLYCOL 3350 (17GM) 1 DOSE PACK PO SCH (21:00)
[2017-08-13] VITALS: BP 98/60
[2017-08-13] MEDS: IPRATROPIUM/ALBUTEROL 0.5-3(2.5)MG/3ML NEB HHN SCH ×5 (07:41→23:01)
[2017-08-13 08:00] VITALS: BP 111/61
[2017-08-13] MEDS: ENOXAPARIN 40MG/0.4ML SYR SUBCUT SCH (08:52)
[2017-08-13] MEDS: PAROXETINE HCL 20MG TABLET PO SCH (08:53)
[2017-08-13] MEDS: ASPIRIN 81MG EC TABLET PO SCH (08:53)
[2017-08-13] MEDS: LOSARTAN POTASSIUM 25 MG TABLET PO SCH (08:53)
[2017-08-13] MEDS: CYPROHEPTADINE HCL 4 MG TABLET PO SCH (08:53)
[2017-08-13] MEDS: POTASSIUM CHLORIDE 10MEQ TABLET SR PO SCH (08:53)
[2017-08-13] MEDS: CARVEDILOL 12.5MG TABLET PO SCH ×2 (08:54→21:00)
[2017-08-13] MEDS: DOCUSATE SODIUM 100MG CAPSULE PO SCH ×2 (08:54→17:00)
[2017-08-13 20:00] VITALS: BP 98/51
[2017-08-13] MEDS: POLYETHYLENE GLYCOL 3350 (17GM) 1 DOSE PACK PO SCH (21:00)
[2017-08-14 04:51] LABS: CLARITY URINE CLOUDY (CLEAR); COLOR URINE YELLOW (YELLOW); GLUCOSE URINE NEGATIVE (NEGATIVE); KETONES URINE NEGATIVE (NEGATIVE); LEUKOCYTE ESTERASE URINE 2+ (NEGATIVE); NITRITE URINE NEGATIVE (NEGATIVE); OCCULT BLOOD URINE NEGATIVE (NEGATIVE); PH URINE 5.5 (4.5-8.0); PROTEIN URINE 1+ (NEGATIVE); SPECIFIC GRAVITY URINE 1.024 (1.005-1.030); UROBILINOGEN URINE 0.2 E.U./dL (0.2-1.0)
[2017-08-14 07:58] LABS: BASOPHILS % 0.8 % (0.0-2.0); EOSINOPHILS % 4.5 % (0.0-5.0); HEMATOCRIT. 35.2 % (36.0-48.0); HEMOGLOBIN. 11.9 g/dL (12.0-16.0); LYMPHOCYTES % 19.6 % (20.0-50.0); MEAN CORPUSCULAR HEMOGLOBIN 31.6 pg (28.0-32.0); MEAN CORPUSCULAR VOLUME 93.8 fL (81.0-99.0); MEAN PLATELET VOLUME 9.4 fl (7.4-10.4); MONOCYTES % 6.3 % (2.0-8.0); NEUTROPHILS % 68.8 % (40.0-76.0); PLATELET 151 x1000/uL (130-400); RED BLOOD CELL COUNT 3.76 mill/uL (4.2-5.4); RED CELL DISTRIBUTION WIDTH 14.6 % (11.6-14.6)
[2017-08-14 08:00] VITALS: BP 91/63
[2017-08-14 08:29] LABS: CHLORIDE 110 mEq/L (98-107)
[2017-08-14 08:38] LABS: FOLIC ACID (FOLATE) SERUM 16.5 ng/mL (>5.38)
[2017-08-14 08:44] LABS: CARBON DIOXIDE 27 mEq/L (21-32); HDL CHOLESTEROL 31 mg/dL (40-59); LDL CHOLESTEROL 76 mg/dL (5-100); PHOSPHORUS 2.7 mg/dL (2.5-4.9); TOTAL IRON BINDING CAPACITY 184 ug/dL (250-450)
[2017-08-14] MEDS: CYPROHEPTADINE HCL 4 MG TABLET PO SCH (08:50)
[2017-08-14] MEDS: ASPIRIN 81MG EC TABLET PO SCH ×2 (08:50→08:57)
[2017-08-14] MEDS: PAROXETINE HCL 20MG TABLET PO SCH (08:51)
[2017-08-14] MEDS: ENOXAPARIN 40MG/0.4ML SYR SUBCUT SCH ×2 (08:51→08:58)
[2017-08-14] MEDS: POTASSIUM CHLORIDE 10MEQ TABLET SR PO SCH (08:51)
[2017-08-14] MEDS: CARVEDILOL 12.5MG TABLET PO SCH ×2 (08:52→20:29)
[2017-08-14] MEDS: LOSARTAN POTASSIUM 25 MG TABLET PO SCH (08:52)
[2017-08-14] MEDS: DOCUSATE SODIUM 100MG CAPSULE PO SCH ×2 (08:54→16:45)
[2017-08-14] MEDS: IPRATROPIUM/ALBUTEROL 0.5-3(2.5)MG/3ML NEB HHN SCH ×4 (09:44→21:00)
[2017-08-14] MEDS ORDERED: POTASSIUM CHLORIDE 20MEQ TABLET SR PO SCH (12:45)
[2017-08-14] MEDS: LACTULOSE 20G/30ML UDC PO SCH ×2 (19:19→21:00)
[2017-08-14 20:00] VITALS: BP 148/67
[2017-08-14] MEDS: POLYETHYLENE GLYCOL 3350 (17GM) 1 DOSE PACK PO SCH (20:29)
[2017-08-15 03:30] VITALS: BP 107/68
[2017-08-15] MEDS: ONDANSETRON HCL 4MG/2ML VIAL IV PRN (03:34)
[2017-08-15 08:00] VITALS: BP 96/58
[2017-08-15 08:07] LABS: BASOPHILS % 0.8 % (0.0-2.0); EOSINOPHILS % 4.2 % (0.0-5.0); HEMATOCRIT. 33.1 % (36.0-48.0); HEMOGLOBIN. 11.3 g/dL (12.0-16.0); LYMPHOCYTES % 17.2 % (20.0-50.0); MEAN CORPUSCULAR HEMOGLOBIN 31.9 pg (28.0-32.0); MEAN CORPUSCULAR VOLUME 93.6 fL (81.0-99.0); MEAN PLATELET VOLUME 9.5 fl (7.4-10.4); NEUTROPHILS % 70.8 % (40.0-76.0); PLATELET 144 x1000/uL (130-400); RED BLOOD CELL COUNT 3.53 mill/uL (4.2-5.4); RED CELL DISTRIBUTION WIDTH 14.6 % (11.6-14.6)
[2017-08-15 08:29] LABS: CARBON DIOXIDE 29 mEq/L (21-32); CHLORIDE 108 mEq/L (98-107)
[2017-08-15] MEDS: POTASSIUM CHLORIDE 10MEQ TABLET SR PO SCH (08:42)
[2017-08-15] MEDS: LACTULOSE 20G/30ML UDC PO SCH ×4 (08:42→17:00)
[2017-08-15] MEDS: PAROXETINE HCL 20MG TABLET PO SCH (08:42)
[2017-08-15] MEDS: ENOXAPARIN 40MG/0.4ML SYR SUBCUT SCH ×2 (08:42→08:49)
[2017-08-15] MEDS: ASPIRIN 81MG EC TABLET PO SCH ×2 (08:42→08:48)
[2017-08-15] MEDS: DOCUSATE SODIUM 100MG CAPSULE PO SCH ×2 (08:43→17:31)
[2017-08-15] MEDS: CARVEDILOL 12.5MG TABLET PO SCH ×2 (08:43→21:00)
[2017-08-15] MEDS: LOSARTAN POTASSIUM 25 MG TABLET PO SCH (08:43)
[2017-08-15] MEDS ORDERED: IRON SUCROSE COMPLEX 100 MG in SODIUM CHLORIDE 0.9% 95 ML IV SCH (09:00)
[2017-08-15] MEDS: IPRATROPIUM/ALBUTEROL 0.5-3(2.5)MG/3ML NEB HHN SCH ×3 (09:21→16:55)
[2017-08-15] MEDS ORDERED: MAGNESIUM/ALUMINUM HYDROXIDE/SIMETHICONE 30ML UDC PO PRN (12:30)
[2017-08-15] MEDS ORDERED: OMEPRAZOLE 20MG CAPSULE EXTENDED RELEASE PO NR (13:00)
[2017-08-15] MEDS: LORAZEPAM 0.5MG TABLET PO PRN (15:16)
[2017-08-15 20:00] VITALS: BP 100/53
[2017-08-15] MEDS: CYPROHEPTADINE HCL 4 MG TABLET PO SCH (21:00)
[2017-08-15] MEDS: POLYETHYLENE GLYCOL 3350 (17GM) 1 DOSE PACK PO SCH (21:00)
[2017-08-15] MEDS: IRON SUCROSE COMPLEX 100 MG in SODIUM CHLORIDE 0.9% 95 ML IV SCH (22:02)
[2017-08-16] MEDS: OMEPRAZOLE 20MG CAPSULE EXTENDED RELEASE PO SCH (06:57)
[2017-08-16] MEDS: IPRATROPIUM/ALBUTEROL 0.5-3(2.5)MG/3ML NEB HHN SCH ×4 (07:48→19:50)
[2017-08-16 08:00] VITALS: BP 119/81
[2017-08-16] MEDS: DOCUSATE SODIUM 100MG CAPSULE PO SCH ×2 (09:00→17:00)
[2017-08-16] MEDS ORDERED: LEVOFLOXACIN 500MG TABLET PO SCH ×2 (09:00→11:00)
[2017-08-16] MEDS: ASPIRIN 81MG EC TABLET PO SCH (09:00)
[2017-08-16] MEDS: ENOXAPARIN 40MG/0.4ML SYR SUBCUT SCH (09:00)
[2017-08-16] MEDS: POTASSIUM CHLORIDE 10MEQ TABLET SR PO SCH (09:24)
[2017-08-16] MEDS: CARVEDILOL 12.5MG TABLET PO SCH ×2 (09:25→21:00)
[2017-08-16] MEDS: PAROXETINE HCL 20MG TABLET PO SCH (09:25)
[2017-08-16] MEDS: LOSARTAN POTASSIUM 25 MG TABLET PO SCH (09:25)
[2017-08-16] MEDS: ONDANSETRON HCL 4MG/2ML VIAL IV PRN (10:59)
[2017-08-16 19:00] VITALS: BP 83/50
[2017-08-16] MEDS: CYPROHEPTADINE HCL 4 MG TABLET PO SCH (21:00)
[2017-08-16] MEDS: POLYETHYLENE GLYCOL 3350 (17GM) 1 DOSE PACK PO SCH (21:00)
[2017-08-17] MEDS: IRON SUCROSE COMPLEX 100 MG in SODIUM CHLORIDE 0.9% 95 ML IV SCH ×2 (01:27→21:09)
[2017-08-17] MEDS: ONDANSETRON HCL 4MG/2ML VIAL IV PRN (04:03)
[2017-08-17] MEDS: OMEPRAZOLE 20MG CAPSULE EXTENDED RELEASE PO SCH (06:41)
[2017-08-17] MEDS: AMOXICILLIN 500 MG CAPSULE PO SCH ×3 (06:41→21:10)
[2017-08-17 07:34] LABS: CARBON DIOXIDE 29 mEq/L (21-32); CHLORIDE 109 mEq/L (98-107)
[2017-08-17 07:46] LABS: BASOPHILS % 0.8 % (0.0-2.0); EOSINOPHILS % 3.6 % (0.0-5.0); HEMATOCRIT. 32.2 % (36.0-48.0); HEMOGLOBIN. 10.8 g/dL (12.0-16.0); LYMPHOCYTES % 16.5 % (20.0-50.0); MEAN CORPUSCULAR HEMOGLOBIN 31.5 pg (28.0-32.0); MEAN CORPUSCULAR VOLUME 94.1 fL (81.0-99.0); MEAN PLATELET VOLUME 9.4 fl (7.4-10.4); MONOCYTES % 7.8 % (2.0-8.0); NEUTROPHILS % 71.3 % (40.0-76.0); PLATELET 143 x1000/uL (130-400); RED BLOOD CELL COUNT 3.42 mill/uL (4.2-5.4); RED CELL DISTRIBUTION WIDTH 14.6 % (11.6-14.6)
[2017-08-17 08:00] VITALS: BP 101/64
[2017-08-17] MEDS: IPRATROPIUM/ALBUTEROL 0.5-3(2.5)MG/3ML NEB HHN SCH ×4 (08:25→20:35)
[2017-08-17] MEDS: LOSARTAN POTASSIUM 25 MG TABLET PO SCH (09:00)
[2017-08-17] MEDS: DOCUSATE SODIUM 100MG CAPSULE PO SCH ×2 (09:00→17:00)
[2017-08-17] MEDS: CARVEDILOL 12.5MG TABLET PO SCH ×2 (09:00→21:00)
[2017-08-17] MEDS: ASPIRIN 81MG EC TABLET PO SCH (09:00)
[2017-08-17] MEDS: ENOXAPARIN 40MG/0.4ML SYR SUBCUT SCH (09:00)
[2017-08-17] MEDS: PAROXETINE HCL 20MG TABLET PO SCH (09:00)
[2017-08-17] MEDS: POTASSIUM CHLORIDE 10MEQ TABLET SR PO SCH (10:01)
[2017-08-17] MEDS ORDERED: LEVOFLOXACIN 250MG TABLET PO SCH (11:00)
[2017-08-17 20:00] VITALS: BP 97/59
[2017-08-17] MEDS: CYPROHEPTADINE HCL 4 MG TABLET PO SCH (21:00)
[2017-08-17] MEDS: POLYETHYLENE GLYCOL 3350 (17GM) 1 DOSE PACK PO SCH (21:00)
[2017-08-18] MEDS: LORAZEPAM 0.5MG TABLET PO PRN (01:35)
[2017-08-18] MEDS: OMEPRAZOLE 20MG CAPSULE EXTENDED RELEASE PO SCH (06:12)
[2017-08-18] MEDS: AMOXICILLIN 500 MG CAPSULE PO SCH ×3 (06:12→22:04)
[2017-08-18] MEDS: IPRATROPIUM/ALBUTEROL 0.5-3(2.5)MG/3ML NEB HHN SCH ×3 (07:23→21:22)
[2017-08-18 08:00] VITALS: BP 122/67
[2017-08-18] MEDS: DOCUSATE SODIUM 100MG CAPSULE PO SCH ×2 (09:00→17:00)
[2017-08-18] MEDS: PAROXETINE HCL 20MG TABLET PO SCH (09:00)
[2017-08-18] MEDS: LOSARTAN POTASSIUM 25 MG TABLET PO SCH ×2 (09:00→15:55)
[2017-08-18] MEDS: ASPIRIN 81MG EC TABLET PO SCH ×2 (09:00→15:39)
[2017-08-18] MEDS: ENOXAPARIN 40MG/0.4ML SYR SUBCUT SCH ×2 (09:00→16:07)
[2017-08-18 09:06] LABS: 25-HYDROXY VITAMIN D3 16 ng/mL (.)
[2017-08-18] MEDS: POTASSIUM CHLORIDE 10MEQ TABLET SR PO SCH (09:13)
[2017-08-18] MEDS: CARVEDILOL 12.5MG TABLET PO SCH ×2 (09:18→20:47)
[2017-08-18] MEDS: AMLODIPINE 2.5MG TABLET PO SCH ×2 (09:30→16:11)
[2017-08-18] MEDS: ZINC SULFATE 220 MG ( 50 ) CAPSULE PO SCH (14:15)
[2017-08-18] MEDS ORDERED: ERGOCALCIFEROL 50000UNITS CAPSULE PO SCH (14:15)
[2017-08-18] MEDS ORDERED: LORAZEPAM 0.5MG TABLET PO PRN (19:15)
[2017-08-18 20:00] VITALS: BP 130/88
[2017-08-18] MEDS: POLYETHYLENE GLYCOL 3350 (17GM) 1 DOSE PACK PO SCH (20:47)
[2017-08-18] MEDS: CYPROHEPTADINE HCL 4 MG TABLET PO SCH (20:48)
[2017-08-18] MEDS: IRON SUCROSE COMPLEX 100 MG in SODIUM CHLORIDE 0.9% 95 ML IV SCH (20:48)
[2017-08-19] MEDS: AMOXICILLIN 500 MG CAPSULE PO SCH ×3 (06:23→22:18)
[2017-08-19] MEDS: OMEPRAZOLE 20MG CAPSULE EXTENDED RELEASE PO SCH (06:24)
[2017-08-19 06:58] LABS: BASOPHILS % 1.2 % (0.0-2.0); EOSINOPHILS % 5.6 % (0.0-5.0); HEMOGLOBIN. 11.5 g/dL (12.0-16.0); LYMPHOCYTES % 23.8 % (20.0-50.0); MEAN CORPUSCULAR HEMOGLOBIN 31.7 pg (28.0-32.0); MEAN CORPUSCULAR VOLUME 93.5 fL (81.0-99.0); MEAN PLATELET VOLUME 9.2 fl (7.4-10.4); MONOCYTES % 6.2 % (2.0-8.0); NEUTROPHILS % 63.2 % (40.0-76.0); PLATELET 163 x1000/uL (130-400); RED BLOOD CELL COUNT 3.64 mill/uL (4.2-5.4); RED CELL DISTRIBUTION WIDTH 14.4 % (11.6-14.6)
[2017-08-19 07:09] LABS: CARBON DIOXIDE 28 mEq/L (21-32); CHLORIDE 109 mEq/L (98-107)
[2017-08-19 08:00] VITALS: BP 97/61
[2017-08-19] MEDS ORDERED: POTASSIUM CHLORIDE 10MEQ TABLET SR PO NR ×2 (09:00→09:15)
[2017-08-19] MEDS: LOSARTAN POTASSIUM 25 MG TABLET PO SCH (09:00)
[2017-08-19] MEDS: PAROXETINE HCL 20MG TABLET PO SCH ×3 (09:00→15:44)
[2017-08-19] MEDS: AMLODIPINE 2.5MG TABLET PO SCH (09:00)
[2017-08-19] MEDS: CARVEDILOL 12.5MG TABLET PO SCH ×2 (09:00→22:19)
[2017-08-19] MEDS ORDERED: POTASSIUM CHLORIDE 20MEQ TABLET SR PO NR (09:00)
[2017-08-19] MEDS: DOCUSATE SODIUM 100MG CAPSULE PO SCH ×2 (09:00→16:35)
[2017-08-19] MEDS: IPRATROPIUM/ALBUTEROL 0.5-3(2.5)MG/3ML NEB HHN SCH ×4 (09:39→20:46)
[2017-08-19] MEDS: ENOXAPARIN 40MG/0.4ML SYR SUBCUT SCH (09:56)
[2017-08-19] MEDS: POTASSIUM CHLORIDE 10MEQ TABLET SR PO SCH (09:56)
[2017-08-19] MEDS: ASPIRIN 81MG EC TABLET PO SCH (09:56)
[2017-08-19] MEDS: ZINC SULFATE 220 MG ( 50 ) CAPSULE PO SCH (10:05)
[2017-08-19 20:00] VITALS: BP 116/70
[2017-08-19] MEDS: POLYETHYLENE GLYCOL 3350 (17GM) 1 DOSE PACK PO SCH (21:00)
[2017-08-19] MEDS: IRON SUCROSE COMPLEX 100 MG in SODIUM CHLORIDE 0.9% 95 ML IV SCH (21:38)
[2017-08-19] MEDS: CYPROHEPTADINE HCL 4 MG TABLET PO SCH (22:18)
[2017-08-20] MEDS: AMOXICILLIN 500 MG CAPSULE PO SCH ×2 (06:56→14:39)
[2017-08-20] MEDS: OMEPRAZOLE 20MG CAPSULE EXTENDED RELEASE PO SCH (06:56)
[2017-08-20 08:00] VITALS: BP 104/70
[2017-08-20] MEDS: POTASSIUM CHLORIDE 10MEQ TABLET SR PO SCH (08:52)
[2017-08-20] MEDS: ENOXAPARIN 40MG/0.4ML SYR SUBCUT SCH (08:52)
[2017-08-20] MEDS: AMLODIPINE 2.5MG TABLET PO SCH (08:59)
[2017-08-20] MEDS: CARVEDILOL 12.5MG TABLET PO SCH (08:59)
[2017-08-20] MEDS: DOCUSATE SODIUM 100MG CAPSULE PO SCH (08:59)
[2017-08-20] MEDS: LOSARTAN POTASSIUM 25 MG TABLET PO SCH (08:59)
[2017-08-20] MEDS: ASPIRIN 81MG EC TABLET PO SCH (08:59)
[2017-08-20] MEDS: ZINC SULFATE 220 MG ( 50 ) CAPSULE PO SCH (09:00)
[2017-08-20] MEDS: PAROXETINE HCL 20MG TABLET PO SCH (09:00)
[2017-08-20] MEDS: IPRATROPIUM/ALBUTEROL 0.5-3(2.5)MG/3ML NEB HHN SCH ×2 (09:37→13:00)
[2017-08-20 12:06] VITALS: BP 104/70
== END 2017-08-20 16:27 | disposition home or self-care (01) | DRG 291 ==
PROVIDERS: ADMIT Physical Medicine & Rehabilitation Spinal Cord Injury Medicine; ATTEND Specialist
DX: I11.0 Hypertensive heart disease with heart failure (principal); J96.00 Acute respiratory failure, unspecified whether with hypoxia or hypercapnia; E87.0 Hyperosmolality and hypernatremia; I27.2 Other secondary pulmonary hypertension; R13.10 Dysphagia, unspecified; I08.1 Rheumatic disorders of both mitral and tricuspid valves; N39.0 Urinary tract infection, site not specified; I50.23 Acute on chronic systolic (congestive) heart failure; I42.9 Cardiomyopathy, unspecified; E55.9 Vitamin D deficiency, unspecified; E61.1 Iron deficiency; F06.31 Mood disorder due to known physiological condition with depressive features; E78.5 Hyperlipidemia, unspecified; E87.6 Hypokalemia; F32.9 Major depressive disorder, single episode, unspecified; Z77.22 Contact with and (suspected) exposure to environmental tobacco smoke (acute) (chronic); R53.81 Other malaise; I25.10 Atherosclerotic heart disease of native coronary artery without angina pectoris; F41.1 Generalized anxiety disorder; E78.00 Pure hypercholesterolemia, unspecified; R26.9 Unspecified abnormalities of gait and mobility; Z87.891 Personal history of nicotine dependence; Z95.810 Presence of automatic (implantable) cardiac defibrillator; Z87.01 Personal history of pneumonia (recurrent); Z88.6 Allergy status to analgesic agent; Z79.899 Other long term (current) drug therapy; Z91.19 Patient's noncompliance with other medical treatment and regimen; Z88.5 Allergy status to narcotic agent
CPT/HCPCS: 36415; 71010; 80048; 80053; 80061; 81001; 82270; 82306; 82607; 82728; 82746; 83036; 83540; 83550; 83735; 84100; 84443; 84630; 85025; 87077; 87086; 87186; 92523; 93970; 94640; 97110; 97116; 97163; 97166; 97530; 97535; C1893; J1650; J2405; J7040; J7050; J7620

== ENCOUNTER 2017-08-22 14:54 | Inpatient (IN) | payer MEDICARE, MEDICAID ==
[~2017-08-22] VITALS: Ht 168.9 cm; Wt 49.9 kg
[2017-08-22] MEDS: SODIUM CHLORIDE 0.9% 1,000 ML IV ONE ×2 (14:25→17:25)
[~2017-08-22 14:54] MED LIST changes: -ALPR0.5T PO; -FURO40TA5 PO; -LORA2TAB2 PO; -METO-396 PO; -POTA10CA42 PO; -VALS80TA2 PO
[2017-08-22 17:01] LABS: BASOPHILS % 0.7 % (0.0-2.0); EOSINOPHILS % 3.1 % (0.0-5.0); HEMATOCRIT. 37.2 % (36.0-48.0); HEMOGLOBIN. 12.4 g/dL (12.0-16.0); LYMPHOCYTES % 20.9 % (20.0-50.0); MEAN CORPUSCULAR HEMOGLOBIN 31.7 pg (28.0-32.0); MEAN CORPUSCULAR VOLUME 95.1 fL (81.0-99.0); MEAN PLATELET VOLUME 8.9 fl (7.4-10.4); MONOCYTES % 8.3 % (2.0-8.0); PLATELET 211 x1000/uL (130-400); RED BLOOD CELL COUNT 3.91 mill/uL (4.2-5.4); RED CELL DISTRIBUTION WIDTH 14.6 % (11.6-14.6)
[2017-08-22 17:07] LABS: INR 1.1; PARTIAL THROMBOPLASTIN TIME 27.6 sec (23.4-31.0); PROTHROMBIN TIME 11.5 sec (9.4-11.6)
[2017-08-22 17:15] LABS: CARBON DIOXIDE 24 mEq/L (21-32); CHLORIDE 113 mEq/L (98-107); CREATINE KINASE MB FRACTION 1.5 ng/mL (0.5-3.6); TROPONIN I 0.16 ng/mL (0.00-0.04)
[2017-08-22] MEDS ORDERED: ASPIRIN 81MG TABLET PO STA (17:31)
[2017-08-22] MEDS ORDERED: FUROSEMIDE 40MG/4ML VIAL IV STA (17:31)
[2017-08-22] MEDS ORDERED: NITROGLYCERIN OINT 1GM/INCH UDPKT TD STA (17:31)
[2017-08-22 17:59] LABS: CLARITY URINE CLEAR (CLEAR); COLOR URINE DARK YELLOW (YELLOW); GLUCOSE URINE NEGATIVE (NEGATIVE); KETONES URINE TRACE (NEGATIVE); LEUKOCYTE ESTERASE URINE TRACE (NEGATIVE); NITRITE URINE NEGATIVE (NEGATIVE); OCCULT BLOOD URINE 2+ (NEGATIVE); PH URINE 5.5 (4.5-8.0); PROTEIN URINE 2+ (NEGATIVE); SPECIFIC GRAVITY URINE 1.022 (1.005-1.030); UROBILINOGEN URINE 0.2 E.U./dL (0.2-1.0)
[2017-08-22] MEDS ORDERED: CEFTRIAXONE 1 G PREMIX 50 ML IV ONE (20:45)
[2017-08-22 21:15] VITALS: BP 121/81
[2017-08-22] MEDS ORDERED: ACETAMINOPHEN 325MG TABLET PO PRN (23:00)
[2017-08-22] MEDS ORDERED: TEMAZEPAM 15MG CAPSULE PO PRN (23:00)
[2017-08-22] MEDS ORDERED: LORA0.5T2 PO (23:00)
[2017-08-23] VITALS (7 sets, daily range): BP systolic 101–121; BP diastolic 57–81
[2017-08-23] MEDS ORDERED: POTASSIUM CHLORIDE 20MEQ TABLET SR PO SCH (09:00)
[2017-08-23] MEDS ORDERED: FUROSEMIDE 40MG/4ML VIAL IVP SCH ×2 (09:00→18:00)
[2017-08-23] MEDS: LOSARTAN POTASSIUM 25 MG TABLET PO SCH (09:36)
[2017-08-23] MEDS: ASPIRIN 81MG EC TABLET PO SCH (09:36)
[2017-08-23] MEDS: CARVEDILOL 6.25 MG TABLET PO SCH ×2 (09:37→21:00)
[2017-08-23] MEDS: LORAZEPAM 0.5MG TABLET PO PRN ×2 (13:21→18:30)
[2017-08-23] MEDS ORDERED: ALBUTEROL (0.083%) 2.5MG/3ML NEB HHN PRN (16:00)
[2017-08-23] MEDS ORDERED: ALBUTEROL (0.083%) 2.5MG/3ML NEB HHN SCH (16:00)
[2017-08-23] MEDS ORDERED: POTASSIUM CHLORIDE 10MEQ TABLET SR PO SCH (17:00)
[2017-08-23] MEDS: FUROSEMIDE 40MG/4ML VIAL IVP SCH (18:17)
[2017-08-23] MEDS ORDERED: IPRATROPIUM/ALBUTEROL 0.5-3(2.5)MG/3ML NEB HHN PRN (18:30)
[2017-08-23] MEDS: IPRATROPIUM/ALBUTEROL 0.5-3(2.5)MG/3ML NEB HHN SCH (22:20)
[2017-08-24] MEDS: IPRATROPIUM/ALBUTEROL 0.5-3(2.5)MG/3ML NEB HHN SCH ×4 (02:09→20:54)
[2017-08-24 03:05] VITALS: BP 100/66
[2017-08-24 04:00] VITALS: BP 113/75
[2017-08-24] MEDS: FUROSEMIDE 40MG/4ML VIAL IVP SCH ×2 (06:00→17:37)
[2017-08-24 06:32] LABS: BASOPHILS % 0.9 % (0.0-2.0); EOSINOPHILS % 5.8 % (0.0-5.0); HEMATOCRIT. 35.6 % (36.0-48.0); LYMPHOCYTES % 22.4 % (20.0-50.0); MEAN CORPUSCULAR HEMOGLOBIN 31.8 pg (28.0-32.0); MEAN CORPUSCULAR VOLUME 94.3 fL (81.0-99.0); MEAN PLATELET VOLUME 9.3 fl (7.4-10.4); MONOCYTES % 9.7 % (2.0-8.0); NEUTROPHILS % 61.2 % (40.0-76.0); PLATELET 183 x1000/uL (130-400); RED BLOOD CELL COUNT 3.78 mill/uL (4.2-5.4); RED CELL DISTRIBUTION WIDTH 14.9 % (11.6-14.6)
[2017-08-24 07:56] LABS: CARBON DIOXIDE 29 mEq/L (21-32); CHLORIDE 110 mEq/L (98-107)
[2017-08-24 08:00] VITALS: BP 116/74
[2017-08-24] MEDS: LOSARTAN POTASSIUM 25 MG TABLET PO SCH (08:57)
[2017-08-24] MEDS: LORAZEPAM 0.5MG TABLET PO PRN ×2 (08:57→18:54)
[2017-08-24] MEDS: CARVEDILOL 6.25 MG TABLET PO SCH ×2 (08:57→22:28)
[2017-08-24] MEDS: ASPIRIN 81MG EC TABLET PO SCH (08:58)
[2017-08-24] MEDS ORDERED: POTASSIUM CHLORIDE 20MEQ TABLET SR PO SCH (09:00)
[2017-08-24] MEDS ORDERED: KCL 20MEQ/100ML PREMIX 100 ML IV NR (09:15)
[2017-08-24 12:00] VITALS: BP 96/58
[2017-08-24] MEDS ORDERED: POTASSIUM CHLORIDE 20MEQ TABLET SR PO NR (13:00)
[2017-08-24 16:00] VITALS: BP 106/65
[2017-08-24] MEDS: POTASSIUM CHLORIDE 20MEQ TABLET SR PO SCH (16:45)
[2017-08-24] MEDS ORDERED: POTASSIUM CHLORIDE 10MEQ TABLET SR PO SCH (17:00)
[2017-08-24 20:00] VITALS: BP 101/67
[2017-08-25] VITALS (7 sets, daily range): BP systolic 94–129; BP diastolic 56–73
[2017-08-25] MEDS: IPRATROPIUM/ALBUTEROL 0.5-3(2.5)MG/3ML NEB HHN SCH ×5 (00:47→20:44)
[2017-08-25] MEDS: FUROSEMIDE 40MG/4ML VIAL IVP SCH ×2 (05:58→17:26)
[2017-08-25 06:49] LABS: CARBON DIOXIDE 30 mEq/L (21-32); CHLORIDE 110 mEq/L (98-107)
[2017-08-25] MEDS: ASPIRIN 81MG EC TABLET PO SCH (08:47)
[2017-08-25] MEDS: POTASSIUM CHLORIDE 20MEQ TABLET SR PO SCH ×4 (08:47→20:50)
[2017-08-25] MEDS: LOSARTAN POTASSIUM 25 MG TABLET PO SCH (08:48)
[2017-08-25] MEDS: CARVEDILOL 6.25 MG TABLET PO SCH ×2 (08:48→20:50)
[2017-08-25] MEDS: LORAZEPAM 0.5MG TABLET PO PRN ×2 (12:16→18:17)
[2017-08-25] MEDS ORDERED: MAGNESIUM SULFATE 3 GM in DEXT 5% WATER 96 ML IV NR (15:00)
[2017-08-26] VITALS (7 sets, daily range): BP systolic 96–120; BP diastolic 61–83
[2017-08-26] MEDS: IPRATROPIUM/ALBUTEROL 0.5-3(2.5)MG/3ML NEB HHN SCH ×4 (01:00→21:12)
[2017-08-26] MEDS: FUROSEMIDE 40MG/4ML VIAL IVP SCH ×2 (06:00→17:14)
[2017-08-26] MEDS: ASPIRIN 81MG EC TABLET PO SCH (08:48)
[2017-08-26] MEDS: CARVEDILOL 6.25 MG TABLET PO SCH ×3 (08:49→21:14)
[2017-08-26] MEDS: LORAZEPAM 0.5MG TABLET PO PRN ×2 (08:49→18:18)
[2017-08-26] MEDS: POTASSIUM CHLORIDE 20MEQ TABLET SR PO SCH ×5 (08:49→21:14)
[2017-08-26] MEDS: LOSARTAN POTASSIUM 25 MG TABLET PO SCH (08:53)
[2017-08-27] VITALS: BP 107/62
[2017-08-27] MEDS: IPRATROPIUM/ALBUTEROL 0.5-3(2.5)MG/3ML NEB HHN SCH ×4 (02:45→20:30)
[2017-08-27 04:00] VITALS: BP 106/57
[2017-08-27] MEDS: FUROSEMIDE 40MG/4ML VIAL IVP SCH (05:09)
[2017-08-27] MEDS: LORAZEPAM 0.5MG TABLET PO PRN ×2 (05:28→21:30)
[2017-08-27 08:00] VITALS: BP 101/71
[2017-08-27 08:16] LABS: CARBON DIOXIDE 27 mEq/L (21-32); CHLORIDE 110 mEq/L (98-107)
[2017-08-27] MEDS: POTASSIUM CHLORIDE 20MEQ TABLET SR PO SCH (09:00)
[2017-08-27] MEDS: ASPIRIN 81MG EC TABLET PO SCH (09:18)
[2017-08-27] MEDS: LOSARTAN POTASSIUM 25 MG TABLET PO SCH (09:19)
[2017-08-27] MEDS: CARVEDILOL 6.25 MG TABLET PO SCH ×2 (10:21→21:00)
[2017-08-27 12:00] VITALS: BP 96/54
[2017-08-27 16:00] VITALS: BP 98/60
[2017-08-27 20:00] VITALS: BP 102/66
[2017-08-28] VITALS: BP 107/72
[2017-08-28] MEDS: IPRATROPIUM/ALBUTEROL 0.5-3(2.5)MG/3ML NEB HHN SCH ×4 (02:15→20:50)
[2017-08-28 04:00] VITALS: BP 110/76
[2017-08-28 08:00] VITALS: BP 100/59
[2017-08-28] MEDS: CARVEDILOL 6.25 MG TABLET PO SCH ×2 (09:00→21:34)
[2017-08-28] MEDS: ASPIRIN 81MG EC TABLET PO SCH (09:32)
[2017-08-28 12:00] VITALS: BP 128/62
[2017-08-28 16:00] VITALS: BP 108/68
[2017-08-28] MEDS: LORAZEPAM 0.5MG TABLET PO PRN (17:31)
[2017-08-28 17:43] LABS: CARBON DIOXIDE 30 mEq/L (21-32); CHLORIDE 107 mEq/L (98-107)
[2017-08-28] MEDS: POTASSIUM CHLORIDE 20MEQ TABLET SR PO SCH (19:41)
[2017-08-28] MEDS: FUROSEMIDE 40MG TABLET PO NR ×2 (19:41→19:46)
[2017-08-28 20:00] VITALS: BP 114/74
[2017-08-29] VITALS (7 sets, daily range): BP systolic 92–117; BP diastolic 57–84
[2017-08-29] MEDS: IPRATROPIUM/ALBUTEROL 0.5-3(2.5)MG/3ML NEB HHN SCH ×4 (00:38→21:34)
[2017-08-29] MEDS: POTASSIUM CHLORIDE 20MEQ TABLET SR PO SCH ×2 (08:29→13:38)
[2017-08-29] MEDS: CARVEDILOL 6.25 MG TABLET PO SCH ×2 (08:29→21:19)
[2017-08-29] MEDS: ASPIRIN 81MG EC TABLET PO SCH (08:29)
[2017-08-29 08:48] LABS: CARBON DIOXIDE 29 mEq/L (21-32); CHLORIDE 108 mEq/L (98-107)
[2017-08-29] MEDS ORDERED: POTASSIUM CHLORIDE 20MEQ TABLET SR PO SCH ×2 (09:00→10:30)
[2017-08-29] MEDS ORDERED: FUROSEMIDE 40MG TABLET PO NR (09:00)
[2017-08-29] MEDS: LORAZEPAM 0.5MG TABLET PO PRN ×2 (09:34→19:27)
[2017-08-29] MEDS ORDERED: FUROSEMIDE 40MG/4ML VIAL IVP SCH (10:30)
[2017-08-29] MEDS ORDERED: FUROSEMIDE 40MG TABLET PO SCH (11:15)
[2017-08-30] VITALS: BP 99/65
[2017-08-30] MEDS: IPRATROPIUM/ALBUTEROL 0.5-3(2.5)MG/3ML NEB HHN SCH ×3 (02:40→14:59)
[2017-08-30 04:00] VITALS: BP 98/58
[2017-08-30 08:00] VITALS: BP 111/71
[2017-08-30] MEDS: ASPIRIN 81MG EC TABLET PO SCH (08:51)
[2017-08-30] MEDS: CARVEDILOL 6.25 MG TABLET PO SCH (08:52)
[2017-08-30] MEDS: LORAZEPAM 0.5MG TABLET PO PRN (09:30)
[2017-08-30 12:00] VITALS: BP_SYST 111; BP_SYST 138; BP_DIAS 69; BP_DIAS 74
[2017-08-30] MEDS ORDERED: FUROSEMIDE 40MG TABLET PO NR (12:45)
[2017-08-30] MEDS ORDERED: POTASSIUM CHLORIDE 20MEQ TABLET SR PO NR (12:45)
[2017-08-30 14:56] VITALS: BP 110/67
[2017-08-30 16:00] VITALS: BP 119/68
== END 2017-08-30 17:25 | disposition home or self-care (01) | DRG 190 ==
LOC: ER 14:54 → 7WST 17:44 → ENRESERV 19:50 → 7WST 08-26 02:45
PROVIDERS: ADMIT Internal Medicine; ATTEND Internal Medicine
DX: J44.1 Chronic obstructive pulmonary disease with (acute) exacerbation (principal); I50.23 Acute on chronic systolic (congestive) heart failure; I47.2 Ventricular tachycardia; I95.9 Hypotension, unspecified; I42.9 Cardiomyopathy, unspecified; F03.90 Unspecified dementia, unspecified severity, without behavioral disturbance, psychotic disturbance, mood disturbance, and anxiety; I11.0 Hypertensive heart disease with heart failure; E44.1 Mild protein-calorie malnutrition; I25.10 Atherosclerotic heart disease of native coronary artery without angina pectoris; I34.0 Nonrheumatic mitral (valve) insufficiency; Z88.6 Allergy status to analgesic agent; Z95.810 Presence of automatic (implantable) cardiac defibrillator; Z79.82 Long term (current) use of aspirin; Z79.899 Other long term (current) drug therapy
CPT/HCPCS: 36415; 71010; 80048; 80053; 81001; 82553; 83735; 83880; 84132; 84484; 85025; 85610; 85730; 87086; 87106; 87493; 93005; 93306; 94640; 96361; 96374; 96375; 97116; 97162; 97166; 99285; J0696; J1940; J3475; J3480; J7030; J7050; J7060; J7611; J7620

== ENCOUNTER 2017-09-24 18:06 | Emergency (ER) | payer MEDICARE, MEDICAID ==
[~2017-09-24] VITALS: Ht 182.9 cm; Wt 50.0 kg
[~2017-09-24 18:06] MED LIST changes: +LORA0.5T2 PO
[2017-09-24 19:39] LABS: BASOPHILS % 1.5 % (0.0-2.0); EOSINOPHILS % 4.1 % (0.0-5.0); HEMATOCRIT. 40.9 % (36.0-48.0); HEMOGLOBIN. 13.7 g/dL (12.0-16.0); LYMPHOCYTES % 26.8 % (20.0-50.0); MEAN CORPUSCULAR HEMOGLOBIN 31.4 pg (28.0-32.0); MEAN CORPUSCULAR VOLUME 93.9 fL (81.0-99.0); MEAN PLATELET VOLUME 10.2 fl (7.4-10.4); NEUTROPHILS % 61.6 % (40.0-76.0); PLATELET 136 x1000/uL (130-400); RED BLOOD CELL COUNT 4.36 mill/uL (4.2-5.4)
[2017-09-24 19:42] LABS: CHLORIDE 112 mEq/L (98-107)
[2017-09-24 19:53] LABS: CARBON DIOXIDE 27 mEq/L (21-32); TROPONIN I 0.09 ng/mL (0.00-0.04)
[2017-09-24 20:15] LABS: INR 1.1
[2017-09-24] MEDS ORDERED: FUROSEMIDE 20MG/2ML VIAL IVP ONE (20:15)
[2017-09-24] MEDS ORDERED: POTASSIUM CHLORIDE 20MEQ TABLET SR PO ONE (21:45)
[2017-09-24 23:30] VITALS: BP 134/94
== END 2017-09-24 23:30 | disposition home or self-care (01) ==
LOC: ER 19:31
DX: R06.00 Dyspnea, unspecified (principal); R00.2 Palpitations; R42 Dizziness and giddiness; R63.0 Anorexia; J44.9 Chronic obstructive pulmonary disease, unspecified; I25.10 Atherosclerotic heart disease of native coronary artery without angina pectoris; E78.00 Pure hypercholesterolemia, unspecified; I11.0 Hypertensive heart disease with heart failure; I50.9 Heart failure, unspecified; Z79.82 Long term (current) use of aspirin; Z88.5 Allergy status to narcotic agent
CPT/HCPCS: 36415; 71010; 80053; 83880; 84484; 85025; 85610; 93005; 96374; 99285; J1940; J7030; 99284

== ENCOUNTER 2018-03-30 11:22 | Emergency (ER) | payer MEDICARE, MEDICAID ==
[~2018-03-30] VITALS: Ht 167.6 cm; Wt 53.0 kg
[~2018-03-30 11:22] MED LIST changes: +ALPR-392 MT; -ASPI-1159 PO; +FURO20TA4 PO; +KDUR10 PO; -LORA0.5T2 PO; +MESALAMINE PO
[2018-03-30] MEDS ORDERED: FUROSEMIDE 40MG/4ML VIAL IVP ONE (13:15)
[2018-03-30 13:26] LABS: CHLORIDE 114 mEq/L (98-107); EOSINOPHILS % 2.9 % (0.0-5.0); HEMATOCRIT. 37.8 % (36.0-48.0); HEMOGLOBIN. 12.8 g/dL (12.0-16.0); LYMPHOCYTES % 20.5 % (20.0-50.0); MEAN CORPUSCULAR HEMOGLOBIN 33.4 pg (28.0-32.0); MEAN CORPUSCULAR VOLUME 98.8 fL (81.0-99.0); MEAN PLATELET VOLUME 9.1 fl (7.4-10.4); MONOCYTES % 10.9 % (2.0-8.0); NEUTROPHILS % 64.7 % (40.0-76.0); PLATELET 191 x1000/uL (130-400); RED BLOOD CELL COUNT 3.82 mill/uL (4.2-5.4); RED CELL DISTRIBUTION WIDTH 16.8 % (11.6-14.6)
[2018-03-30 13:29] LABS: INR 1.3
[2018-03-30] MEDS ORDERED: FUROSEMIDE 20MG/2ML VIAL IVP NR (14:15)
[2018-03-30] MEDS ORDERED: ASPIRIN 81MG TABLET PO ONE (15:15)
[2018-03-30 19:46] VITALS: BP 130/80
== END 2018-03-30 19:48 | disposition home or self-care (01) ==
LOC: ER 13:17
DX: R60.0 Localized edema (principal); F41.9 Anxiety disorder, unspecified; I11.0 Hypertensive heart disease with heart failure; I50.9 Heart failure, unspecified; E78.00 Pure hypercholesterolemia, unspecified; F32.9 Major depressive disorder, single episode, unspecified; J44.9 Chronic obstructive pulmonary disease, unspecified; Z79.82 Long term (current) use of aspirin; Z88.5 Allergy status to narcotic agent; Z95.810 Presence of automatic (implantable) cardiac defibrillator; Z98.890 Other specified postprocedural states
CPT/HCPCS: 36415; 71045; 80053; 82962; 83880; 84484; 85025; 85610; 93005; 96374; 99285; J1940